=== PATIENT | female | born 1975 | race Caucasian/White ===

== ENCOUNTER 2020-09-22 19:23 | Emergency (ER) | payer BC, OTHER ==
[2020-09-22 19:35] VITALS: BMI 29.5
[2020-09-22] MEDS ORDERED: ACETAMINOPHEN 1000 MG/100 ML VIAL (NON FORMULARY) IVPB ONE (19:58)
[2020-09-22] MEDS ORDERED: SODIUM CHLORIDE 1,000 ML IV STA (20:31)
[2020-09-22] MEDS ORDERED: ACETAMINOPHEN INJECTION 100 ML IVPB ONE (20:40)
[2020-09-22] MEDS ORDERED: ONDANSETRON 4 MG/2 ML VIAL IVPUSH ONE (20:50)
[2020-09-22] MEDS ORDERED: ONDANSETRON 4 MG/2 ML VIAL ONE (20:51)
[2020-09-22 21:18] LABS: VENOUS BASE EXCESS 0.8 mmol/L (-2-2); VENOUS O2 SATURATION 64.8 % (70-80); VENOUS PCO2 47.4 mmHg (38-52); VENOUS PH 7.368 (7.310-7.410)
[2020-09-22 21:19] LABS: BASO % 0.2 % (0-2.0); EOS % 0.1 % (0-4.5); LYMPH % 19.6 % (8-40); MCH 32.1 pg (25.7-33.7); MCHC 33.3 g/dl (32.0-36.0); MEAN CELL VOLUME 96.6 fl (80-96); MONO % 9.6 % (3.8-10.2); NEUT % 70.5 % (42.8-82.8); PLATELET COUNT 197 K/MM3 (134-434); RBC 4.03 M/mm3 (3.60-5.2); RDW 12.4 % (11.6-15.6); WHITE BLOOD COUNT 6.2 K/mm3 (4.0-10.0)
[2020-09-22 21:34] LABS: INR 0.98 (0.83-1.09); PROTHROMBIN TIME (PATIENT) 12.1 SEC (9.7-13.0)
[2020-09-22 21:36] LABS: ACTIVATED PTT 32.6 SECONDS (25.2-36.5)
[2020-09-22 21:50] LABS: POTASSIUM 4.3 mmol/L (3.5-5.1)
[2020-09-22 21:53] LABS: CALCIUM 8.7 mg/dL (8.5-10.1)
[2020-09-22 21:54] LABS: BLOOD UREA NITROGEN 13.9 mg/dL (7-18); MAGNESIUM 2.4 mg/dL (1.8-2.4)
[2020-09-22 21:57] LABS: CREATININE 0.7 mg/dL (0.55-1.3)
[2020-09-22 21:59] LABS: BILIRUBIN,TOTAL 0.3 mg/dL (0.2-1); TOT PROT 8.2 g/dl (6.4-8.2)
[2020-09-22 22:47] LABS: EPI CELLS 19 /uL (0-25.1); HYALINE CASTS 0 /uL (0-3.1); URINE APPEARANCE CLEAR; URINE BACTERIA 646 /uL (0-1359); URINE BILIRUBIN NEGATIVE (NEGATIVE); URINE COLOR YELLOW; URINE GLUCOSE (UA) NEGATIVE (NEGATIVE); URINE KETONE NEGATIVE (NEGATIVE); URINE LEUK ESTERASE NEGATIVE (NEGATIVE); URINE NITRITE NEGATIVE (NEGATIVE); URINE PROTEIN NEGATIVE (NEGATIVE); URINE RBC 10 /uL (0-23.9); URINE UROBILINOGEN 0.2 mg/dL (0.2-1.0); URINE WBC 3 /uL (0-25.8)
[2020-09-22] MEDS ORDERED: FOLIC ACID INJECTION - 1 MG, THIAMINE HCL 100 MG, MULTIVIT INJECTION ADULT 10 ML in SOD... IVPB ONE (22:58)
[2020-09-23 02:27] VITALS: TEMP 99.7
[2020-09-23] MEDS ORDERED: ACETAMINOPHEN 325 MG TABLET (FP) PO ONE (02:55)
[2020-09-23] MEDS ORDERED: ACETAMINOPHEN 325 MG TABLET (FP) ONE (03:06)
[2020-09-23 03:58] VITALS: BP 102/69; PULSE 107
== END 2020-09-23 03:59 | disposition home or self-care (01) ==
LOC: JER 19:23
PROC: 3E033NZ Introduction of Analgesics, Hypnotics, Sedatives into Peripheral Vein, Percutaneous Approach (ICD-10-PCS; principal; 2020-09-22)
PROC: 3E033GC Introduction of Other Therapeutic Substance into Peripheral Vein, Percutaneous Approach (ICD-10-PCS; 2020-09-22)
DX: Z11.52 Encounter for screening for COVID-19 (principal)
CPT/HCPCS: 36415; 71045-TC-FY; 80053; 81003; 82728; 82803; 83605; 83615; 83735; 84484; 85025; 85379; 85610; 85730; 86140; 87086; 93005; 93010; 99285-25; J0131

== ENCOUNTER 2020-09-23 20:18 | Emergency (ER) | payer BC, OTHER ==
[2020-09-23 20:43] VITALS: BP 126/83; PULSE 76; TEMP 98.9; BMI 22.6
[2020-09-23] MEDS ORDERED: IBUPROFEN 600 MG TABLET (FP) PO ONE ×2 (21:01→21:05)
== END 2020-09-23 21:09 | disposition home or self-care (01) ==
LOC: JER 20:18
DX: Z11.52 Encounter for screening for COVID-19 (principal)
CPT/HCPCS: 99284-25

== ENCOUNTER 2021-10-03 10:30 | Emergency (ER) | payer BC, OTHER ==
[2021-10-03 10:41] VITALS: TEMP 97.5; BMI 25.3
[2021-10-03] MEDS ORDERED: SODIUM CHLORIDE 1,000 ML IV STA (11:50)
[2021-10-03] MEDS ORDERED: ACETAMINOPHEN 1000 MG/100 ML BAG IVPB ONE (11:50)
[2021-10-03] MEDS ORDERED: ACETAMINOPHEN INJECTION 100 ML IVPB ONE (11:57)
[2021-10-03 12:19] LABS: BASO % 0.4 % (0-2.0); EOS % 0.8 % (0-4.5); HEMATOCRIT 37.4 % (32.4-45.2); HEMOGLOBIN 12.2 GM/dL (10.7-15.3); LYMPH % 32.9 % (8-40); MCH 31.4 pg (25.7-33.7); MCHC 32.7 g/dl (32.0-36.0); MEAN CELL VOLUME 96.1 fl (80-96); MEAN PLT VOLUME 8.4 fl (7.5-11.1); NEUT % 59.9 % (42.8-82.8); PLATELET COUNT 261 10^3/uL (134-434); RDW 12.9 % (11.6-15.6); WHITE BLOOD COUNT 6.1 K/mm3 (4.0-10.0)
[2021-10-03 12:22] LABS: EPI CELLS 8 /uL (0-25.1); HYALINE CASTS 1 /uL (0-3.1); URINE APPEARANCE CLEAR; URINE BACTERIA 100 /uL (0-1359); URINE BILIRUBIN NEGATIVE (NEGATIVE); URINE COLOR YELLOW; URINE GLUCOSE (UA) NEGATIVE (NEGATIVE); URINE KETONE NEGATIVE (NEGATIVE); URINE LEUK ESTERASE NEGATIVE (NEGATIVE); URINE NITRITE NEGATIVE (NEGATIVE); URINE PROTEIN NEGATIVE (NEGATIVE); URINE RBC 39 /uL (0-23.9); URINE UROBILINOGEN 0.2 mg/dL (0.2-1.0); URINE WBC 3 /uL (0-25.8)
[2021-10-03 12:49] LABS: ALBUMIN 3.8 g/dl (3.4-5.0); BLOOD UREA NITROGEN 13.6 mg/dL (7-18); CALCIUM 9.3 mg/dL (8.5-10.1)
[2021-10-03 12:52] LABS: CREATININE 0.7 mg/dL (0.55-1.3)
[2021-10-03 12:54] LABS: BILIRUBIN,TOTAL 0.2 mg/dL (0.2-1); TOT PROT 7.2 g/dl (6.4-8.2)
[2021-10-03 15:57] VITALS: BP 124/58; PULSE 80
== END 2021-10-03 15:57 | disposition home or self-care (01) ==
LOC: JER 10:30
PROC: 3E033NZ Introduction of Analgesics, Hypnotics, Sedatives into Peripheral Vein, Percutaneous Approach (ICD-10-PCS; principal; 2021-10-03)
PROC: 3E0337Z Introduction of Electrolytic and Water Balance Substance into Peripheral Vein, Percutaneous Approach (ICD-10-PCS; 2021-10-03)
DX: R10.30 Lower abdominal pain, unspecified (principal)
CPT/HCPCS: 36415; 74176-TC; 80053; 81003; 83690; 84703; 85025; 87086; 99285-25; J0131